=== PATIENT | male | born 1960 | race Asian ===

== ENCOUNTER 2018-09-24 13:23 | Emergency (ER) | payer SELFPAY ==
[~2018-09-24] VITALS: Ht 180.3 cm; Wt 81.8 kg
[2018-09-24] MEDS ORDERED: LIDOCAINE HCL/EPINEPHRINE 1%-EPI 1:100,000 20 ML VIAL INFIL ONE (17:30)
[2018-09-24 18:20] VITALS: BP 155/95
== END 2018-09-24 18:22 | disposition home or self-care (01) ==
LOC: ER 13:23
DX: L02.31 Cutaneous abscess of buttock (principal); F12.10 Cannabis abuse, uncomplicated; F17.200 Nicotine dependence, unspecified, uncomplicated
CPT/HCPCS: 10060; 99283; J3490

== ENCOUNTER 2020-08-06 10:09 | Emergency (ER) | payer OTHER ==
[~2020-08-06] VITALS: Ht 172.7 cm; Wt 77.0 kg
[2020-08-06] MEDS ORDERED: NAPR-681 MT (10:35)
[2020-08-06] MEDS ORDERED: IBUPROFEN 600MG TABLET PO ONE (10:45)
[2020-08-06 10:49] VITALS: BP 150/101
== END 2020-08-06 11:18 | disposition home or self-care (01) ==
LOC: ER 10:09
DX: M54.89 Other dorsalgia (principal); R03.0 Elevated blood-pressure reading, without diagnosis of hypertension; F12.90 Cannabis use, unspecified, uncomplicated
CPT/HCPCS: 99282